=== PATIENT | female | born 1975 ===

== ENCOUNTER 2020-09-10 09:42 | Emergency (ER) | payer OTHER, SELFPAY ==
--- NOTE | ~2020-09-10 | XR_ITS ---
EXAMINATION: XR CHEST CLINICAL INFORMATION: SOB. COMPARISON: Chest x-ray 06/18/2015 TECHNIQUE: Frontal view of the chest was obtained. FINDINGS: No significant abnormality is noted involving the heart, lungs, mediastinum, bony thorax or soft tissues. XR/XR chest 1V IMPRESSION: Unremarkable chest examination.
[2020-09-10 09:47] VITALS: BP 147/94; PULSE 98; RESP 22; TEMP 36.8; O2SAT 97; BMI 54.8
--- NOTE | 2020-09-10 10:32 | ECG_ITS ---
Test Reason : SHORT OF BREATH Blood Pressure : / mmHG Vent. Rate : 094 BPM Atrial Rate : 094 BPM P-R Int : 174 ms QRS Dur : 098 ms QT Int : 382 ms P-R-T Axes : 056 049 047 degrees QTc Int : 477 ms Normal sinus rhythm Normal ECG No previous ECGs available Referred By: Zohreh Tatum Electronically Signed By:SONIDO SCHULTE MD
--- NOTE | 2020-09-10 10:54 | ED_ITS ---
HPI - SOB/Dyspnea General Chief Complaint: Dyspnea Stated Complaint: asthma Time Seen by Provider: 09/10/20 10:14 Source: patient Mode of arrival: ambulatory History of Present Illness HPI Narrative: 44-year-old female with a past medical history of asthma presenting to the ED complaining of SOB since last night. Also reports dry cough. Patient previously COVID-19 positive in March. Denies fever, chills, chest pain, recent travel, LE edema, COVID-19 exposure, abdominal pain, nausea/vomiting MD elicited complaint: shortness of breath, cough and asthma attack Related Data Allergies Allergy/AdvReac Type Severity Reaction Status Date / Time Penicillins [PENICILLINS] Allergy Unknown HIVES Unverified 01/12/20 16:10 Review of Systems Review of Systems: Constitutional: No Fever, No Chills Cardiovascular: No Chest Pain, + SOB, No Dyspnea on Exertion, No Edema, Respiratory: + Cough, No Sputum, No Wheezing Gastrointestinal: No Nausea, No Vomiting, No Diarrhea, No Constipation, No Abdominal pain Genitourinary: No Hematuria, No Flank Pain Musculoskeletal: No joint pain, No Myalgias, No Joint Swelling Skin: No Skin Lesions, No rash Neuro: No Weakness, No Numbness, No Headache Yes all other systems are reviewed and are negative FOR[facility]LY [facility] Past Medical History Attestation statement: The following information was validated with the patient. Medical History (Updated 09/10/20 @ 13:16 by RENETTA Heaton) Asthma Diabetic acidosis Social History Social History Advance Directives: No Advance Directives Information Provided: No Physical Exam Vital Signs: Vital Signs: Last Vital Signs Temp 98.2 F 09/10/20 09:47 Pulse 89 09/10/20 11:04 Resp 22 H 09/10/20 09:47 BP 147/94 H 09/10/20 09:47 Pulse Ox 97 09/10/20 09:47 Body Mass Index 54.8 Const: General: cooperative, healthy appearing, comfortable and no acute distress Orientation/consciousness: patient oriented x3 Limitations: no limitations HENMT: Head: Yes normal to inspection Ears: hearing grossly normal bilaterally General nose exam: Normal external nose present Face and sinus: Yes normal facial exam Eyes: General: appearance normal, both eyes and all related structures EOM: EOMs intact bilaterally Neck: Neck: Yes normal visual inspection Chest: Chest palpation & inspection: normal inspection of the chest Resp: Other: Upper airway wheezing Effort & Inspection: normal respiratory effort, able to speak in complete sentences and no stridor Auscultation: clear to auscultation bilaterally, no rales and no rhonchi Cardio: Rate: regular rate Heart sounds: S1 normal heart sound present and S2 normal heart sound present GI: Inspection: Yes normal to inspection Palpation (GI): Soft to palpation, nontender, no guarding and not rigid Skin: Rashes: no rashes Wounds: no wounds Neuro: General: patient oriented x3 Gait exam (Neuro): Normal gait present Extrem: General: Yes normal to inspection, Yes no pedal edema and Yes no calf tenderness Course Course Course Narrative: -1231--WBC count 11.6, magnesium low 1.4 > IV repletion ordered, troponin negative XR chest 1V IMPRESSION: Unremarkable chest examination. -1304--COVID-19/influenza/RSV negative -difficulty obtaining IV access on patient, IV Magnesium changed to p.o. -on re-evaluation patient reports symptomatic improvement/resolution. Lungs CTA. Worrisome signs and symptoms and strict return precautions discussed, she verbalized understanding and feel safe for discharge home MDM - SOB/Dyspnea MDM Narrative Medical decision making narrative: 44-year-old female with a past medical history of asthma presenting to the ED complaining of SOB since last night. Also reports dry cough. On exam mildly tachypneic, NAD, lungs CTA with forced upper airway sounds, no pedal edema/calf tenderness. Concern for possible asthma exacerbation vs viral syndrome vs anxiety. Unlikely pneumonia/PE/ACS Plan: EKG, labs, CXR, albuterol, reassess Medical Records Attestation: I reviewed the patient's medical records. Lab Data Attestation: I reviewed the patient's lab results. Result diagrams: 09/10/20 11:35 09/10/20 11:35 Labs: Lab Results 09/10/20 09/10/20 09/10/20 Range/Units 11:34 11:34 11:35 WBC 11.6 H (4.8-10.8) X10*3/uL RBC 4.23 (4.20-5.50) X10*6/uL Hgb 13.1 (12.0-16.0) g/dl Hct 37.7 (37-47) % MCV 89.1 (80-98) fL MCH 31.0 (27.0-33.0) pg MCHC 34.7 (31.0-35.0) g/dl RDW 12.3 (11.0-16.0) % Plt Count 263 (160-400) X10*3/uL MPV 9.1 L (9.4-12.3) fL Immature Gran % (Auto) 0.4 (0.0-0.4) % Neut % (Auto) 49.8 (45-73) % Lymph % (Auto) 42.6 H (20-40) % [place] % (Auto) 5.3 (2-11) % Eos % (Auto) 1.6 (0-4) % Baso % (Auto) 0.3 (0-2) % Lymph # (Auto) 5.0 H (1.2-4.9) X10*3/uL [place] # (Auto) 0.6 (0.1-1.2) X10*3/uL Eos # (Auto) 0.2 (0.0-0.4) X10*3/uL Baso # (Auto) 0.0 (0.0-0.2) X10*3/uL Abs Immat Gran (auto) 0.05 H (0.00-0.03) X10*3/uL Absolute Neuts (auto) 5.8 (2.0-8.3) X10*3/uL Absolute Nucleated RBC 0.000 (0.0-0.012) X10*3/uL Nucleated RBC % (auto) 0.0 (0.0-0.2) /100WBC PT (10.8-13.0) SEC INR (0.9-1.1) APTT (24.1-38.0) SEC Sodium (135-145) mmol/L Potassium (3.3-5.1) mmol/L Chloride (96-108) mmol/L Carbon Dioxide (22-29) mmol/L Anion Gap (12-20) BUN (9-16) mg/dL Creatinine (0.5-1.4) mg/dL Estim Creat Clear Calc Estimated GFR Random Glucose (60-115) mg/dL Calcium (8.4-10.2) mg/dL Magnesium (1.6-2.6) mg/dL Total Bilirubin (0.0-1.0) mg/dL Direct Bilirubin (0.0-0.5) mg/dL AST (5-31) U/L ALT (0-31) U/L Alkaline Phosphatase (39-117) U/L Troponin I High Sens < 3.5 (<3.5-17.0) ng/L B-Natriuretic Peptide < 10 (<100) pg/mL Total Protein (6.5-8.0) g/dL Albumin (3.5-5.0) g/dL Coronavirus (PCR) NEGATIVE (Negative) Influenza Type A (PCR) NEGATIVE (Negative) Influenza Type B (PCR) NEGATIVE (Negative) RSV RNA Qual (PCR) NEGATIVE (Negative) 09/10/20 09/10/20 09/10/20 Range/Units 11:35 11:35 11:35 WBC (4.8-10.8) X10*3/uL RBC (4.20-5.50) X10*6/uL Hgb (12.0-16.0) g/dl Hct (37-47) % MCV (80-98) fL MCH (27.0-33.0) pg MCHC (31.0-35.0) g/dl RDW (11.0-16.0) % Plt Count (160-400) X10*3/uL MPV (9.4-12.3) fL Immature Gran % (Auto) (0.0-0.4) % Neut % (Auto) (45-73) % Lymph % (Auto) (20-40) % [place] % (Auto) (2-11) % Eos % (Auto) (0-4) % Baso % (Auto) (0-2) % Lymph # (Auto) (1.2-4.9) X10*3/uL [place] # (Auto) (0.1-1.2) X10*3/uL Eos # (Auto) (0.0-0.4) X10*3/uL Baso # (Auto) (0.0-0.2) X10*3/uL Abs Immat Gran (auto) (0.00-0.03) X10*3/uL Absolute Neuts (auto) (2.0-8.3) X10*3/uL Absolute Nucleated RBC (0.0-0.012) X10*3/uL Nucleated RBC % (auto) (0.0-0.2) /100WBC PT 12.2 (10.8-13.0) SEC INR 1.0 (0.9-1.1) APTT 31.7 (24.1-38.0) SEC Sodium 138 (135-145) mmol/L Potassium 3.4 (3.3-5.1) mmol/L Chloride 97 (96-108) mmol/L Carbon Dioxide 29 (22-29) mmol/L Anion Gap 15 (12-20) BUN 16 (9-16) mg/dL Creatinine 0.77 (0.5-1.4) mg/dL Estim Creat Clear Calc 118.4 Estimated GFR > 60 Random Glucose 235 H (60-115) mg/dL Calcium 9.3 (8.4-10.2) mg/dL Magnesium 1.4 L* (1.6-2.6) mg/dL Total Bilirubin 0.3 (0.0-1.0) mg/dL Direct Bilirubin < 0.2 (0.0-0.5) mg/dL AST 15 (5-31) U/L ALT 30 (0-31) U/L Alkaline Phosphatase 65 (39-117) U/L Troponin I High Sens (<3.5-17.0) ng/L B-Natriuretic Peptide (<100) pg/mL Total Protein 6.7 (6.5-8.0) g/dL Albumin 4.1 (3.5-5.0) g/dL Coronavirus (PCR) (Negative) Influenza Type A (PCR) (Negative) Influenza Type B (PCR) (Negative) RSV RNA Qual (PCR) (Negative) Discharge Plan Discharge Clinical Impression: Hypomagnesemia Asthma with exacerbation Qualifiers: Asthma severity: unspecified severity Asthma persistence: unspecified Qualified Code(s): J45.901 - Unspecified asthma with (acute) exacerbation Patient Disposition: Home, Self-Care Instructions: Hypomagnesemia (ED), Asthma (ED) Additional Instructions: Continue to use your inhalers and prescribed home medications Your x-ray was unremarkable Your blood work showed slight low levels of magnesium in your blood, make sure you are eating magnesium rich foods, consider taking magnesium oxide supplements [id number] Follow-up with her doctor If her symptoms persist or worsen, have chest pain, fever, or constant worsening shortness of breath please return to the ED Referrals: Palak Ray NP [Primary Care Provider] - 2 days
[2020-09-10] MEDS: Albuterol/Iprat 2.5/0.5MG 3 ML AMPUL.NEB INHALE (11:00)
[2020-09-10 11:04] VITALS: PULSE 89; O2SAT 95
[2020-09-10 11:45] LABS: MANUAL DIFF FLAG NO
[2020-09-10 11:47] LABS: Basophils Percent Auto 0.3 % (0-2); Eosinophils Absolute Auto 0.2 X10*3/uL (0.0-0.4); Eosinophils Percent Auto 1.6 % (0-4); Hematocrit 37.7 % (37-47); Hemoglobin 13.1 g/dl (12.0-16.0); Imm Gran Abs Auto 0.05 X10*3/uL (0.00-0.03); Imm Gran Pct Auto 0.4 % (0.0-0.4); Lymphocytes Percent Auto 42.6 % (20-40); Mean Corpuscular HGB Conc 34.7 g/dl (31.0-35.0); Mean Corpuscular Volume 89.1 fL (80-98); Mean Platelet Volume 9.1 fL (9.4-12.3); Monocytes Absolute Auto 0.6 X10*3/uL (0.1-1.2); Monocytes Percent Auto 5.3 % (2-11); Neutrophils Absolute Auto 5.8 X10*3/uL (2.0-8.3); Neutrophils Percent Auto 49.8 % (45-73); Platelet Count 263 X10*3/uL (160-400); Red Blood Count 4.23 X10*6/uL (4.20-5.50); Red Cell Distribution Width 12.3 % (11.0-16.0); White Blood Count 11.6 X10*3/uL (4.8-10.8)
[2020-09-10 11:52] LABS: Prothrombin Time 12.2 SEC (10.8-13.0)
[2020-09-10 11:55] LABS: Partial Thromboplastin Time 31.7 SEC (24.1-38.0)
[2020-09-10 12:24] LABS: Alanine Aminotransferase 30 U/L (0-31); Albumin Level 4.1 g/dL (3.5-5.0); Alkaline Phosphatase 65 U/L (39-117); Aspartate Amino Transferase 15 U/L (5-31); Bilirubin Direct < 0.2 mg/dL (0.0-0.5); Bilirubin Total 0.3 mg/dL (0.0-1.0); Total Protein 6.7 g/dL (6.5-8.0)
[2020-09-10 12:27] LABS: Anion Gap 15 (12-20); Blood Urea Nitrogen 16 mg/dL (9-16); Calcium 9.3 mg/dL (8.4-10.2); Carbon Dioxide 29 mmol/L (22-29); Chloride 97 mmol/L (96-108); Creatinine Clr Calc Pharmacy 118.4; Estimated Glomerular Filt Rate > 60; Glucose Random 235 mg/dL (60-115); Magnesium 1.4 mg/dL (1.6-2.6); Potassium 3.4 mmol/L (3.3-5.1); Sodium 138 mmol/L (135-145)
[2020-09-10 12:28] LABS: B Type Natriuretic Peptide < 10 pg/mL (<100); Troponin-I High Sensitivity < 3.5 ng/L (<3.5-17.0)
[2020-09-10 12:36] LABS: Influenza A PCR NEGATIVE (Negative); Influenza B PCR NEGATIVE (Negative); Resp Syncy Virus RNA Qual PCR NEGATIVE (Negative); SARS COV2 PCR INHOUSE NEGATIVE (Negative)
[2020-09-10] MEDS: Magnesium Oxide 400 MG TABLET 800 MG PO (13:23)
[2020-09-10 13:25] VITALS: BP 121/56; PULSE 97; RESP 18; O2SAT 96
--- NOTE | 2020-09-10 13:27 | PC.NURSE ---
Pt now appearing calm and no longer is wheezing. Plan for DC home
== END 2020-09-10 13:36 | disposition home or self-care (01) ==
PROVIDERS: Physician Assistant; Emergency Provider Emergency Medicine; PCP Nurse Practitioner Family
DX: J45.901 Unspecified asthma with (acute) exacerbation (principal); E83.42 Hypomagnesemia; Z20.822 Contact with and (suspected) exposure to COVID-19; Z79.899 Other long term (current) drug therapy
CPT/HCPCS: 0241U; 36415; 71045; 80048; 80076; 83735; 83880; 84484; 85025; 85610; 85730; 93005; 94640; 96365; 99283; 99284

== ENCOUNTER 2023-10-15 13:57 | Emergency (ER) | payer OTHER, SELFPAY ==
--- NOTE | ~2023-10-15 | CT_ITS ---
EXAMINATION: CT ABDOMEN AND PELVIS WITH CONTRAST CLINICAL INFORMATION: Lower abdominal pain. COMPARISON: Unable to retrieve comparison images from 11/18/2015. However, the report of prior imaging findings is reviewed. TECHNIQUE: Multidetector volumetric images were obtained from the superior aspect of the liver through the pubic symphysis following administration 85 mL of Omnipaque 350 intravenous contrast. Sagittal and coronal reformatted images were obtained on the technologist's workstation. Oral contrast: No This CT examination was performed using dose optimization techniques as appropriate, variously including the following: *Automated exposure control *Adjustment of mA and/or kV according to patient size (this includes techniques or standardized protocols for targeted exams where dose is matched to indication/reason for exam; i.e. extremities or head) *Use of iterative reconstruction technique DLP: 960 mGy-cm FINDINGS: LOCALIZER IMAGES: Obese body habitus. Normal bowel gas pattern. LUNG BASES: No pulmonary consolidation or pleural effusion. HEPATOBILIARY: There is hepatomegaly with the right hepatic lobe measuring approximately 22.5 cm in length. Gallbladder has a normal appearance. No dilated bile ducts. PANCREAS: No edema, pancreatic ductal dilatation or mass. SPLEEN: Mild splenomegaly. Spleen is 13.7 cm in maximum dimension. ADRENAL GLANDS: Normal. KIDNEYS AND URETERS: Kidneys have normal size and cortical thickness. No perinephric fluid collection, urolithiasis or hydroureteronephrosis. BLADDER: Underdistended and otherwise grossly unremarkable. BOWEL AND PERITONEUM: Stomach and small bowel are unremarkable. No dilated loops. The appendix is normal. No overt colonic wall thickening or mesenteric fat stranding. No free fluid or pneumoperitoneum. ABDOMINAL WALL: No significant findings. VASCULATURE: Abdominal aorta is normal in caliber and its branches are widely patent. LYMPH NODES: No pathologic sized lymph nodes in the abdomen or pelvis. No inguinal lymphadenopathy. PELVIC VISCERA: Status post hysterectomy. A cyst of the left adnexa measures approximately 8.5 x 5.2 x 7.5 cm and contains a central septation. On the axial images, the septation appears to have a thickness in the range of 0.2 to 0.5 cm. There are no papillary projections or mural nodules along the cyst wall. No pelvic free fluid. MUSCULOSKELETAL: Unremarkable. CT/CT abdomen pelvis w IV con IMPRESSION: * There is obesity and hepatosplenomegaly. * 8.5 x 5.2 x 7.5 cm septated cystic lesion is present in the left adnexa. In a patient with symptoms, pelvic ultrasound could be performed promptly for further evaluation and then depending on ultrasound results, determine whether MR imaging of the pelvis would need to be performed. There is no pelvic free fluid.
--- NOTE | ~2023-10-15 | US_ITS ---
EXAMINATION: US PELVIS CLINICAL INFORMATION: Pain. Septated cystic lesion in the left adnexa on recent CT. COMPARISON: CT abdomen/pelvis 10/15/2023. TECHNIQUE: Ultrasound of the pelvis is performed using both transabdominal and transvaginal transducers along with Doppler. Transvaginal imaging is performed due to inadequate visualization transabdominally. FINDINGS: Hysterectomy. The right ovary is not well seen. Redemonstration of a complex multiseptated cystic mass in the left ovary measuring approximately up to 7.6 cm with some equivocal nodular like thickening along the anterior margins of the lesion. The rim of surrounding ovarian stroma does not appear to be significantly thickened, and there is preserved flow on color and spectral Doppler at the moment of this examination. No evidence of free fluid. US/US pelvic ovarian doppler IMPRESSION: Complex multiseptated cystic mass in the left ovary, for which further evaluation with a pelvic MRI with and without IV contrast is recommended. Ovarian neoplasm is not excluded. The ovarian stroma itself do not appear to be significantly thickened and there is preserved flow which argues again ovarian torsion. However, clinical correlation is needed as torsion/detorsion and early partial torsion cannot be entirely excluded.
--- NOTE | ~2023-10-15 | US_ITS ---
EXAMINATION: US PELVIS CLINICAL INFORMATION: Pain. Septated cystic lesion in the left adnexa on recent CT. COMPARISON: CT abdomen/pelvis 10/15/2023. TECHNIQUE: Ultrasound of the pelvis is performed using both transabdominal and transvaginal transducers along with Doppler. Transvaginal imaging is performed due to inadequate visualization transabdominally. FINDINGS: Hysterectomy. The right ovary is not well seen. Redemonstration of a complex multiseptated cystic mass in the left ovary measuring approximately up to 7.6 cm with some equivocal nodular like thickening along the anterior margins of the lesion. The rim of surrounding ovarian stroma does not appear to be significantly thickened, and there is preserved flow on color and spectral Doppler at the moment of this examination. No evidence of free fluid. US/US pelvic and transvaginal IMPRESSION: Complex multiseptated cystic mass in the left ovary, for which further evaluation with a pelvic MRI with and without IV contrast is recommended. Ovarian neoplasm is not excluded. The ovarian stroma itself do not appear to be significantly thickened and there is preserved flow which argues again ovarian torsion. However, clinical correlation is needed as torsion/detorsion and early partial torsion cannot be entirely excluded.
--- NOTE | 2023-10-15 14:19 | ED.ABDPAIN ---
HPI - Abdominal Pain General Chief Complaint: Abdominal Pain Stated Complaint: Lower abd pain Time Seen by Provider: 10/15/23 15:49 Source: patient Mode of arrival: ambulatory Limitations: no limitations History of Present Illness ED Provider: Pari Patel NP HPI narrative: Patient is a 47-year-old female who presents to the emergency department for evaluation of mid lower abdominal pain/suprapubic pain. Reports symptom onset 5 weeks ago has been constant in nature. Over the past few days pain has become worsened she feels it radiating into her lower back. She denies associated fevers, chills, nausea, vomiting, constipation, abnormal vaginal discharge, vaginal bleeding, dysuria, urinary frequency/urgency/hesitancy. She admits to a history of partial hysterectomy with removal of the uterus in approximately 2011 as they ?thought I had endometriosis?. She admits to a history of irregular Pap smears in the past, requiring biopsy but denies any known concerning results, and she has not had 1 in many years, does not recall the date of her last Pap smear. When asked, she does admit to having frequent episodes of diarrhea, at least 4 times weekly and she may experience a single episode of watery diarrhea or many episodes throughout the day. She denies hematochezia or melena. She has tried Tylenol and ibuprofen without improvement in her pain, she takes gabapentin for pain otherwise but states that this does not change her abdominal pain. Denies any history of similar pain in the past. Related Data Allergies Allergy/AdvReac Type Severity Reaction Status Date / Time Penicillins [PENICILLINS] Allergy Unknown HIVES Verified 10/15/23 14:25 bupropion [From Wellbutrin] Allergy Hives Verified 10/15/23 14:25 metformin Allergy Gastrointestinal Verified 10/15/23 14:25 Upset Review of Systems Review of Systems Yes all other systems are reviewed and are negative PMFSH Past Medical History Attestation statement: The following information was validated with the patient. Source: old records reviewed Medical History Diabetic acidosis Asthma Social History Social History Alcohol intake: current Smoked in Last 30 Days: Yes Use of substances other than those prescribed or required for medical reasons: Yes Substance Use Type: Marijuana Substance Use Frequency: Daily Advance Directives: No Advance Directives Information Provided: No Physical Exam ED Vital Signs: Vital Signs - 24 hr 10/15/23 14:20 10/15/23 15:36 10/15/23 19:40 Temperature 98.7 F 97.6 F 98.2 F Pulse Rate 78 72 64 Respiratory Rate 16 19 16 Blood Pressure 127/74 127/72 112/60 Pulse Oximetry 98 96 97 Oxygen Delivery Method Room Air Room Air Room Air BMI result Body Mass Index 47.2 Appearance: Alert.?Oriented to person, place and time. No acute distress.?Normal affect. Eyes: Pupils equal, round and reactive to light.? ENT: Pharynx normal.?? Neck: Normal inspection.? Neck supple.?? CVS: Heart sounds normal. Normal heart rate and rhythm.? Pulses normal.?? Respiratory: No respiratory distress.? Lung sounds clear to auscultation bilaterally?? Abdomen: Soft with mid lower abdominal/suprapubic tenderness upon palpation. No CVA tenderness. Normoactive bowel sounds. ? Skin: Skin warm and dry.? Normal skin color.? ? Extremities: No lower extremity edema.? Neuro: Moves all extremities spontaneously. Sensation intact bilaterally. Ambulates with normal steady gait. Course Course Course Narrative: This is a Rapid Medical Exam performed in triage by Zohreh Trimble PA-C. Full HPI, ROS and PE to be performed by primary ED provider. 47 year-old F w/ PMHx diabetes, asthma presenting to the ED c/o lower pelvic pain x1 mos, constant, worsening. Also reports some back pain. denies rash, dysuria, hematuria, N/V, vaginal bleeding/discharge PE: abdomen soft w/lower ttp, no guarding. nontoxic appearing. talking in complete sentences Plan: Labs, UA Reevaluation(s) Reevaluation #1: CT AP revealing large septated cystic lesion of the left adnexa, plan to obtain further evaluation with pelvic ultrasound with Doppler to evaluate further for possible torsion +/- MRI imaging. No free fluid present. Patient reports pain has been consistent 11/03, amenable to receiving ketorolac at this time. Time: 18:34 Reevaluation #2: Ultrasound with Doppler reveals persistent complex multi septated cystic mass of the left ovary, can not exclude neoplasm, ovarian stroma not significantly thickened and preserved flow which argues against ovarian torsion however recommend clinical correlation for possible torsion/detorsion and early partial torsion. I Consulted with Gynecology on-call; Dr. Waite, he advises that this is to be considered malignant until proven otherwise based on its appearance, in addition, given the size of the mass coupled with her pain which she now reports his progressively worsening, currently 01/04, she should be transferred to a tertiary care center where they have appropriate batch freezer oncology services, and further evaluation for possible torsion. Patient is amenable to receiving morphine 4mg IV at this time, will also medicate with ondansetron. Will attempt transfer to [facility] Time: 20:30 Reevaluation #3: Patient accepted for transfer to [facility], accepting [facility]. Patient updated on plan of care Time: 21:32 Medical Decision Making Medical Decision Making [facility] Narrative: Patient is a 47-year-old female who presents emergency department for evaluation of abdominal pain and diarrhea as per HPI. Overall she appears well, nontoxic, afebrile. She is without tachycardia tachypnea or hypoxia. She is speaking clear full sentences. She has mild tenderness upon palpation over the mid lower abdomen/suprapubic region, no rebound tenderness at McBurney's point, no rigidity or guarding. No CVA tenderness associated with this. Reviewed labs; CBC is without leukocytosis anemia or thrombocytopenia. No electrolyte derangement. No RUSSELL. Mild hyperglycemia random glucose of 182 without anion gap. LFTs and lipase within normal range. Urinalysis with trace leukocyte esterase 1+ urine bacteria and squamous epithelial cells present, concerning for potential urogenital contamination versus true urinary tract infection, she does not have urinary symptoms side from the suprapubic pain. She declines interest in pain medication at this time. CT of the abdomen and pelvis to be obtained Differential Diagnosis Differential Diagnoses: The differential diagnosis associated with the presentation includes (Colitis, diverticulitis, unlikely obstruction, urinary tract infection, pyelonephritis, unlikely dissection, muscular pain) Admission/Observation Consideration of admission/observation: Escalation of care including admission/observation considered Lab Data [facility] Lab Attestation statement: I reviewed the patient's lab results. (See narrative above) 10/15/23 15:02 10/15/23 15:02 Labs: Lab Results 10/15/23 10/15/23 Range/Units 15:00 15:02 WBC 9.7 (4.8-10.8) X10*3/uL RBC 5.31 (4.20-5.50) X10*6/uL Hgb 16.3 H (12.0-16.0) g/dl Hct 46.8 (37.0-47.0) % MCV 88.1 (80.0-98.0) fL MCH 30.7 (27.0-33.0) pg MCHC 34.8 (31.0-35.0) g/dl RDW 12.3 (11.0-16.0) % Plt Count 301 (160-400) X10*3/uL MPV 9.0 L (9.4-12.3) fL Immature Gran % (Auto) 0.3 (0.0-0.4) % Neut % (Auto) 53.6 (45-73) % Lymph % (Auto) 32.3 (20-40) % [place] % (Auto) 9.1 (2-11) % Eos % (Auto) 4.0 (0-4) % Baso % (Auto) 0.7 (0-2) % Lymph # (Auto) 3.1 (1.2-4.9) X10*3/uL [place] # (Auto) 0.9 (0.1-1.2) X10*3/uL Eos # (Auto) 0.4 (0.0-0.4) X10*3/uL Baso # (Auto) 0.1 (0.0-0.2) X10*3/uL Abs Immat Gran (auto) 0.03 (0.00-0.03) X10*3/uL Absolute Neuts (auto) 5.2 (2.0-8.3) x10*3/uL Absolute Nucleated RBC 0.000 (0.0-0.012) X10*3/uL Nucleated RBC % (auto) 0.0 (0.0-0.2) /100WBC Sodium 138 (135-145) mmol/L Potassium 4.0 (3.3-5.1) mmol/L Chloride 97 (96-108) mmol/L Carbon Dioxide 31 H (22-29) mmol/L Anion Gap 14 (12-20) BUN 8 L (9-16) mg/dL Creatinine 0.74 (0.5-1.4) mg/dL Estim Creat Clear Calc 108.6 Estimated GFR > 60 Random Glucose 182 H (60-115) mg/dL Calcium 9.9 D (8.4-10.2) mg/dL Magnesium 1.7 (1.6-2.6) mg/dL Total Bilirubin 0.6 (0.0-1.0) mg/dL Direct Bilirubin 0.2 (0.0-0.5) mg/dL AST 12 (5-31) U/L ALT 11 (0-31) U/L Alkaline Phosphatase 76 (39-117) U/L Total Protein 7.8 (6.5-8.0) g/dL Albumin 4.3 (3.5-5.0) g/dL Lipase 18 (8-78) U/L Urine Color Yellow Urine Appearance Cloudy Urine pH 6.5 (5.0-9.0) Ur Specific [place] 1.015 (1.005-1.025) Urine Protein Negative (Neg-Trace) mg/dL Urine Glucose (UA) Negative (Negative) mg/dL Urine Ketones Trace (Negative) mg/dL Urine Blood Negative (Negative) Urine Nitrite Negative (Negative) Ur Leukocyte Esterase Trace H (Negative) Urine RBC 0-2 (0-2) /HPF Urine WBC 0-5 (0-5) /HPF Ur Squamous Epith Cells 11-20 (0-2) /HPF Urine Bacteria 1+ (None Seen) Hyaline Casts 0-2 (0-2) /LPF Urine Test NEGATIVE (NEGATIVE) Radiology Impression Discussion of test interpretation with radiology: I have reviewed the radiologist's reading. Radiologist Impression: CT/CT abdomen pelvis w IV con IMPRESSION: * There is obesity and hepatosplenomegaly. * 8.5 x 5.2 x 7.5 cm septated cystic lesion is present in the left adnexa. In a patient with symptoms, pelvic ultrasound could be performed promptly for further evaluation and then depending on ultrasound results, determine whether MR imaging of the pelvis would need to be performed. There is no pelvic free fluid. US/US pelvic and transvaginal IMPRESSION: Complex multiseptated cystic mass in the left ovary, for which further evaluation with a pelvic MRI with and without IV contrast is recommended. Ovarian neoplasm is not excluded. The ovarian stroma itself do not appear to be significantly thickened and there is preserved flow which argues again ovarian torsion. However, clinical correlation is needed as torsion/detorsion and early partial torsion cannot be entirely excluded. Independent Historian Clinical information obtained from an independent historian. History obtained from or confirmed by: Spouse (Present who confirms history) Prescription Management I considered prescription management with: Pain Medication Medications Administered Discontinued Medications Generic Name Dose Route Start Last Admin Trade Name Freq PRN Reason Stop Dose Admin Sodium Chloride 1,000 mls @ 999 mls/hr 10/15/23 16:00 10/15/23 18:06 Ns IV 10/15/23 17:00 Infused .Q1H1M DEBORA Infusion Iohexol 100 ml 10/15/23 16:02 10/15/23 16:03 Iohexol 350 Mg/Ml 100 Ml Infus..Btl IV 10/15/23 16:03 85 ml ONCE ONE Administration Ketorolac Tromethamine 30 mg 10/15/23 18:34 10/15/23 18:47 Ketorolac Tromethamine 30 Mg/Ml Vial IVPUSH 10/15/23 18:35 30 mg ONCE ONE Administration Critical Care Time Critical Care Time Critical Care Time: Yes Total Critical Care Time: 35 Attestation: I personally attest to this critical care time spent taking care of the patient exclusive of all other billable procedures was approximately 35 minutes including initial evaluation of patient, ordering tests, morphine IV and re assessment, medical consultation, documentation, re-evaluation. Discharge Plan Discharge Clinical Impression: Adnexal mass Patient Disposition: [facility] Transfer Details: [facility] Print Language: Barb[place]
[2023-10-15 14:20] VITALS: BP 127/74; PULSE 78; RESP 16; TEMP 37.1; O2SAT 98; BMI 47.2
[2023-10-15 15:09] LABS: MANUAL DIFF FLAG NO
[2023-10-15 15:11] LABS: Basophils Absolute Auto 0.1 X10*3/uL (0.0-0.2); Basophils Percent Auto 0.7 % (0-2); Eosinophils Absolute Auto 0.4 X10*3/uL (0.0-0.4); Hematocrit 46.8 % (37.0-47.0); Hemoglobin 16.3 g/dl (12.0-16.0); Imm Gran Abs Auto 0.03 X10*3/uL (0.00-0.03); Imm Gran Pct Auto 0.3 % (0.0-0.4); Lymphocytes Absolute Auto 3.1 X10*3/uL (1.2-4.9); Lymphocytes Percent Auto 32.3 % (20-40); Mean Corpuscular HGB Conc 34.8 g/dl (31.0-35.0); Mean Corpuscular Hemoglobin 30.7 pg (27.0-33.0); Mean Corpuscular Volume 88.1 fL (80.0-98.0); Monocytes Absolute Auto 0.9 X10*3/uL (0.1-1.2); Monocytes Percent Auto 9.1 % (2-11); Neutrophils Absolute Auto 5.2 x10*3/uL (2.0-8.3); Neutrophils Percent Auto 53.6 % (45-73); Platelet Count 301 X10*3/uL (160-400); Red Blood Count 5.31 X10*6/uL (4.20-5.50); Red Cell Distribution Width 12.3 % (11.0-16.0); White Blood Count 9.7 X10*3/uL (4.8-10.8)
[2023-10-15 15:13] LABS: Appearance Urine Cloudy; Color Urine Yellow; Glucose Urine UA Negative (Negative); Leukocyte Esterase Urine Trace (Negative); Nitrite Urine Negative (Negative); PH 6.5 (5.0-9.0); Specific Gravity - Urine 1.015 (1.005-1.025); UMIC TRIGGER UACC YES; Urine Blood Negative (Negative); Urine Ketones Trace mg/dL (Negative); Urine Protein Negative (Neg-Trace)
[2023-10-15 15:15] LABS: Bacteria Urine 1+ (None Seen); Hyaline Casts Urine 0-2 /LPF (0-2); RBC Urine 0-2 /HPF (0-2); UPreg QC Valid YES; Urine Pregnancy NEGATIVE (NEGATIVE); WBC Urine 0-5 /HPF (0-5)
[2023-10-15 15:25] LABS: Alanine Aminotransferase 11 U/L (0-31); Albumin Level 4.3 g/dL (3.5-5.0); Alkaline Phosphatase 76 U/L (39-117); Anion Gap 14 (12-20); Aspartate Amino Transferase 12 U/L (5-31); Bilirubin Direct 0.2 mg/dL (0.0-0.5); Bilirubin Total 0.6 mg/dL (0.0-1.0); Blood Urea Nitrogen 8 mg/dL (9-16); Calcium 9.9 mg/dL (8.4-10.2); Carbon Dioxide 31 mmol/L (22-29); Chloride 97 mmol/L (96-108); Creatinine Clr Calc Pharmacy 108.6; Estimated Glomerular Filt Rate > 60; Glucose Random 182 mg/dL (60-115); Lipase 18 U/L (8-78); Magnesium 1.7 mg/dL (1.6-2.6); Sodium 138 mmol/L (135-145); Total Protein 7.8 g/dL (6.5-8.0)
[2023-10-15 15:36] VITALS: BP 127/72; PULSE 72; RESP 19; TEMP 36.4; O2SAT 96
[2023-10-15] MEDS: iohexoL 350 MG/ML 100 ML INFUS..BTL IV (16:03)
[2023-10-15] MEDS: 0.9 % Sodium Chloride 1,000 ML 999 ML IV (16:15)
--- NOTE | 2023-10-15 16:22 | PC.NURSE ---
pt medicated per JUN- pt had CT abdomen pelvis with IV con. pt sts for the last 6 weeks she has had worsening lower abdominal pain. sts that she had one episode of diarrhea and vomiting a few weeks ago, but no blood was seen. denies fevers, no hx of any GI issues that pt is aware of.
[2023-10-15] MEDS: Ketorolac Tromethamine 30 MG/ML VIAL IVPUSH (18:47)
[2023-10-15 19:40] VITALS: BP 112/60; PULSE 64; RESP 16; TEMP 36.8; O2SAT 97
--- NOTE | 2023-10-15 20:51 | P.CONOB_ITS ---
[employer] - CN: HPI Data of Consult Consult date: 10/15/23 Primary Care Provider: Laila Mosley, CLAUDIA Consult Narrative Narrative: I was consulted on Anisha Atkins who is a 47 year old presenting to the emergency room complaining of lower abdominal pain/suprapubic pain. The patient started having her symptoms started around 5 weeks ago . Over the past few days her pain has become worsened she feels it radiating into her lower back no associated fevers, chills, nausea, vomiting, constipation, abnormal vaginal discharge, vaginal bleeding, or any other GI or symptoms. cc:: CC: [facility] Past Medical History Medical History Diabetic acidosis Asthma Social History Social History Alcohol intake: current Smoked in Last 30 Days: Yes Use of substances other than those prescribed or required for medical reasons: Yes Substance Use Type: Marijuana Substance Use Frequency: Daily Advance Directives: No Advance Directives Information Provided: No Meds Allergies Allergy/AdvReac Type Severity Reaction Status Date / Time Penicillins [PENICILLINS] Allergy Unknown HIVES Verified 10/15/23 14:25 bupropion [From Wellbutrin] Allergy Hives Verified 10/15/23 14:25 metformin Allergy Gastrointestinal Verified 10/15/23 14:25 Upset [employer] Physical Exam Vitals Vital signs: Temp Pulse Resp BP Pulse Ox O2 Del Method 98.2 F 64 16 112/60 97 Room Air 10/15/23 19:40 10/15/23 19:40 10/15/23 19:40 10/15/23 19:40 10/15/23 19:40 10/15/23 19:40 BMI result Body Mass Index 47.2 Additional Comments: Reported by RENETTA Rush in the emergency as the following: Soft with mid lower abdominal/suprapubic tenderness upon palpation. No CVA tenderness. Normoactive bowel sounds. [employer] - Results Labs 10/15/23 15:02 10/15/23 15:02 Labs: Short CBC 10/15/23 Range/Units 15:02 WBC 9.7 (4.8-10.8) X10*3/uL Hgb 16.3 H (12.0-16.0) g/dl Hct 46.8 (37.0-47.0) % Plt Count 301 (160-400) X10*3/uL BMP 10/15/23 15:02 Sodium 138 Potassium 4.0 Chloride 97 Carbon Dioxide 31 H BUN 8 L Creatinine 0.74 Calcium 9.9 D Liver Function 10/15/23 Range/Units 15:02 Total Bilirubin 0.6 (0.0-1.0) mg/dL Direct Bilirubin 0.2 (0.0-0.5) mg/dL AST 12 (5-31) U/L ALT 11 (0-31) U/L Alkaline Phosphatase 76 (39-117) U/L Albumin 4.3 (3.5-5.0) g/dL Urine 10/15/23 Range/Units 15:00 Urine Color Yellow Urine Appearance Cloudy Urine pH 6.5 (5.0-9.0) Ur Specific [place] 1.015 (1.005-1.025) Urine Protein Negative (Neg-Trace) mg/dL Urine Glucose (UA) Negative (Negative) mg/dL Urine Test NEGATIVE (NEGATIVE) Imaging CT scan - pelvis: Radiologist's impression: ITS Impressions Abdomen/Pelvis CT 10/15/23 16:01 IMPRESSION: * There is obesity and hepatosplenomegaly. * 8.5 x 5.2 x 7.5 cm septated cystic lesion is present in the left adnexa. In a patient with symptoms, pelvic ultrasound could be performed promptly for further evaluation and then depending on ultrasound results, determine whether MR imaging of the pelvis would need to be performed. There is no pelvic free fluid. Doppler Study Ultrasound 10/15/23 19:04 IMPRESSION: Complex multiseptated cystic mass in the left ovary, for which further evaluation with a pelvic MRI with and without IV contrast is recommended. Ovarian neoplasm is not excluded. The ovarian stroma itself do not appear to be significantly thickened and there is preserved flow which argues again ovarian torsion. However, clinical correlation is needed as torsion/detorsion and early partial torsion cannot be entirely excluded. Pelvic/Transvag US 10/15/23 19:04 IMPRESSION: Complex multiseptated cystic mass in the left ovary, for which further evaluation with a pelvic MRI with and without IV contrast is recommended. Ovarian neoplasm is not excluded. The ovarian stroma itself do not appear to be significantly thickened and there is preserved flow which argues again ovarian torsion. However, clinical correlation is needed as torsion/detorsion and early partial torsion cannot be entirely excluded. Assessment and Plan (1) Adnexal mass: Status: Acute CT scan and ultrasound shows left 8.5 cm complex adnexal mass with features of potential malignancy or pre malignancy, ovarian neoplasm cannot be excluded, and early torsion cannot be ruled out by Doppler studies, therefore urgent surgical management is recommended. But since there is no Communications Programmer oncologist available on staff at [facility] for potential intraoperative surgical consultation/backup, I would recommend transfer the patient to a tertiary care center with Communications Programmer Oncology service is available on staff. I spent a total of 20 minutes reviewing the chart, communicating in the emergency room provider and documenting the medical record.
[2023-10-15] MEDS: ondansetron HCL 4 MG/2 ML VIAL IVPUSH (21:24)
[2023-10-15] MEDS: Morphine Sulfate 4 MG/ML CARTRIDGE IVPUSH (21:24)
--- NOTE | 2023-10-15 21:56 | PC.NURSE ---
report given to KARTHIK Damon at [facility]. pt awaiting transport
--- NOTE | 2023-10-15 23:03 | PC.NURSE ---
Mckayla COOKS assumed care of pt- pt to go to [facility]
== END 2023-10-15 23:05 | disposition short-term general hospital (02) ==
PROVIDERS: Physician Assistant; Emergency Provider Internal Medicine; PCP Nurse Practitioner Family
DX: R19.09 Other intra-abdominal and pelvic swelling, mass and lump (principal); N94.89 Other specified conditions associated with female genital organs and menstrual cycle; R00.0 Tachycardia, unspecified; J45.909 Unspecified asthma, uncomplicated; E11.65 Type 2 diabetes mellitus with hyperglycemia; R10.30 Lower abdominal pain, unspecified
CPT/HCPCS: 36415; 74177; 76830; 76856; 80048; 80076; 81001; 81025; 83690; 83735; 85025; 93975; 96361; 96374; 96375; 99284; 99285; J1885; J2270; J2405; Q9967

== ENCOUNTER → 2023-10-15 15:30 | Outpatient (BNV) | payer OTHER, SELFPAY | PROVIDERS: Emergency Provider Internal Medicine; PCP Nurse Practitioner Family; Visit Provider Obstetrics & Gynecology | DX: N94.89 Other specified conditions associated with female genital organs and menstrual cycle (principal) | CPT/HCPCS: 99283 ==

== ENCOUNTER 2023-12-15 09:36 | Emergency (ER) | payer OTHER, SELFPAY ==
[2023-12-15 09:49] VITALS: BP 148/84; PULSE 78; RESP 16; TEMP 36.4; O2SAT 95; BMI 45.6
--- NOTE | 2023-12-15 10:16 | ED_ITS ---
HPI - Skin/Abscess/Foreign Bdy General Chief complaint: Skin/Abscess/Foreign Body Stated complaint: Boil? Time Seen by Provider: 12/15/23 10:01 Source: patient, RN notes reviewed and old records reviewed Mode of arrival: ambulatory Limitations: no limitations History of Present Illness ED Provider: ASHLEY HILL PA-C HPI narrative: 48 year old female with pmhx significant for asthma and T2DM presents to the ED today for evaluation of abscess to right thigh x6 days. Admits to small amount of drainage from the area. Cannot recall the color of the discharge. Denies self-lancing the area at home. Trialled hot compresses at home without relief. Reports hx of T2DM however sugars are not well controlled. Reports associated subjective fever, chills, and fatigue (due to not getting much sleep last night). No known sick contacts. No OTC meds at home. Related Data Previous Rx's ?Medication ?Instructions ?Recorded cephalexin 500 mg capsule 500 mg PO QID 7 days #28 caps 12/15/23 doxycycline hyclate 100 mg tablet 100 mg PO BID 7 days #14 tabs 12/15/23 Allergies Allergy/AdvReac Type Severity Reaction Status Date / Time Penicillins [PENICILLINS] Allergy Unknown HIVES Verified 12/15/23 09:50 bupropion [From Wellbutrin] Allergy Hives Verified 12/15/23 09:50 metformin Allergy Gastrointestinal Verified 12/15/23 09:50 Upset Review of Systems 2 Review of Systems: Constitutional: No fever, chills, fatigue, night sweats, weight changes ENT/Mouth: No ear pain, hearing loss, nasal congestion, sinus pain, rhinorrhea, sore throat Eyes: No eye pain, swelling, redness, vision changes, discharge Cardio: No chest pain, palpitations, [place], orthopnea, peripheral edema Pulm: No SOB, cough, sputum, wheezing, dyspnea, hemoptysis GI: No nausea, vomiting, hematemesis, abdominal pain, diarrhea, constipation, hematochezia, melena : No irregular bleeding, dysuria, frequency, urgency, hesitancy, hematuria, flank pain, urinary flow changes, urinary incontinence or retention MSK: No back pain, neck pain, joint pain, myalgias Skin: No lesions, rashes, +abscess to right thigh Neuro: No weakness, numbness, paresthesias, LOC, dizziness, headache Psych: No anxiety/panic, depression, SI/HI, AH/VH All other systems reviewed and are negative. [facility] Past Medical History Attestation statement: The following information was validated with the patient. Source: old records reviewed and nursing notes reviewed Medical History Diabetic acidosis Asthma Social History Social History Alcohol intake: current Substance Use Type: Marijuana Advance Directives: Yes Advance Directives Information Provided: Yes Advance Directives on File: No Physical Exam 2 Vital Signs: Vital Signs: Last Vital Signs Temp 97.1 F 12/15/23 12:20 Pulse 70 12/15/23 12:20 Resp 16 12/15/23 12:20 BP 141/91 H 12/15/23 12:20 Pulse Ox 97 12/15/23 12:20 O2 Del Method Room Air 12/15/23 12:20 BMI result Body Mass Index 45.6 Patient slightly hypertensive. Afebrile. Const: General: cooperative, comfortable and no acute distress O rientation/consciousness: patient oriented x3 Limitations: no limitations HEENT: Head: Yes normal to inspection Eyes: General: appearance normal, both eyes and all related structures P upils: Equal, round and reactive pupils present Neck: Neck: Yes normal visual inspection Resp: Effort & Inspection: normal respiratory effort and able to speak in complete sentences Auscultation: clear to auscultation bilaterally Cardio: Rate: regular rate Rhythm: regular rhythm GI: Other: Obese abdomen, soft, ND/NT, no rebound or guarding. Normoactive bs x4. : General: Yes no CVA tenderness Back/Spine/Pelvis: Back: no CVA tenderness Skin: Other: + see below Neuro: General: patient oriented x3 and gait normal Cranial nerves: Yes Equal, round and reactive pupils present Extrem: Other: + 5cm x3cm abscess noted to right medial thigh with central fluctuance/pointing and surrounding induration/ erythema. warm, ttp. no streaking. Course Course Course Narrative: 1200-- Slight leukocytosis to 13.9 without left shift. No anemia. H&H stable. Chemistry without acute electrolyte abnormality requiring intervention. Random glucose 244 which appears to be around patient's baseline. She has tested negative for COVID, flu, RSV. > I&D performed. Approximately 10 mL of purulent drainage mixed with blood expressed from the abscess. Loculations broken up. Abscess irrigated with saline and iodine. Packed with iodoform packing. Culture sent to lab. Will place patient on Keflex and doxy. Of note, she does have a penicillin allergy. She tells me that this was an allergy as a child and was told that the reaction to this is hives. I did give her a dose of Keflex in the ED today and observed her for approximately 30-40 minutes without reaction. I feel comfortable discharging patient home with Keflex. No concern for anaphylactic reaction. Patient has remained stable throughout ED visit today. Discussed worrisome signs and symptoms and when to return to the ED. All questions answered at this time. Patient is agreeable with disposition and stable for discharge. Medications Administered Discontinued Medications Generic Name Dose Route Start Last Admin Trade Name Freq PRN Reason Stop Dose Admin Cephalexin HCl 500 mg 12/15/23 11:33 12/15/23 11:52 Cephalexin 500 Mg Capsule PO 12/15/23 11:34 500 mg ONCE ONE Administration Doxycycline Monohydrate 100 mg 12/15/23 11:33 12/15/23 11:52 Doxycycline Monohydrate 100 Mg Capsule PO 12/15/23 11:34 100 mg ONCE ONE Administration Lidocaine HCl 5 ml 12/15/23 10:20 12/15/23 10:36 Lidocaine Hcl 1 % Mpf 5 Ml Vial INFILTRATI 12/15/23 10:21 5 ml ONCE ONE Administration Lidocaine HCl 5 ml 12/15/23 10:21 12/15/23 10:37 Lidocaine Hcl 1 % Mpf 5 Ml Vial INFILTRATI 12/15/23 10:22 5 ml ONCE ONE Administration Lorazepam 1 mg 12/15/23 10:20 12/15/23 10:36 Lorazepam 1 Mg Tablet PO 12/15/23 10:21 1 mg ONCE ONE Administration Medical Decision Making Medical Decision Making MDM Narrative: 48 year old female with pmhx significant for asthma and T2DM presents to the ED today for evaluation of abscess to right thigh x6 days. Patient is slightly hypertensive, vitals otherwise wnl. She is nontoxic appearing and in NAD. On exam, 5cm x3cm abscess noted to right medial thigh with central fluctuance/pointing and surrounding induration/ erythema. warm, ttp. no streaking. abd soft, ND/NT, no rebound or guarding. Differential diagnosis includes cellulitis, abscess. Unlikely gangrene, insect bite, tick bourne illness. Plan for basic labs, pain control, I&D, re-evaluation. Differential Diagnosis Differential Diagnoses: The differential diagnosis associated with the presentation includes as above. Admission/Observation Consideration of admission/observation: Escalation of care including admission/observation considered admission considered on presentation Lab Data MDM Lab Attestation statement: I reviewed the patient's lab results. as above. 12/15/23 10:29 12/15/23 10:29 Labs: Lab Results 12/15/23 Range/Units 10:29 WBC 13.9 H (4.8-10.8) X10*3/uL RBC 4.79 (4.20-5.50) X10*6/uL Hgb 14.8 (12.0-16.0) g/dl Hct 42.0 (37.0-47.0) % MCV 87.7 (80.0-98.0) fL MCH 30.9 (27.0-33.0) pg MCHC 35.2 H (31.0-35.0) g/dl RDW 12.1 (11.0-16.0) % Plt Count 304 (160-400) X10*3/uL MPV 9.2 L (9.4-12.3) fL Immature Gran % (Auto) 0.4 (0.0-0.4) % Neut % (Auto) 40.6 L (45-73) % Lymph % (Auto) 49.7 H (20-40) % [place] % (Auto) 5.2 (2-11) % Eos % (Auto) 3.6 (0-4) % Baso % (Auto) 0.5 (0-2) % Lymph # (Auto) 6.9 H (1.2-4.9) X10*3/uL [place] # (Auto) 0.7 (0.1-1.2) X10*3/uL Eos # (Auto) 0.5 H (0.0-0.4) X10*3/uL Baso # (Auto) 0.1 (0.0-0.2) X10*3/uL Abs Immat Gran (auto) 0.05 H (0.00-0.03) X10*3/uL Absolute Neuts (auto) 5.7 (2.0-8.3) x10*3/uL Absolute Nucleated RBC 0.000 (0.0-0.012) X10*3/uL Nucleated RBC % (auto) 0.0 (0.0-0.2) /100WBC Smear Tech's Comments VERIFIED Sodium 137 (135-145) mmol/L Potassium 3.7 (3.3-5.1) mmol/L Chloride 99 (96-108) mmol/L Carbon Dioxide 27 (22-29) mmol/L Anion Gap 15 (12-20) BUN 15 (9-16) mg/dL Creatinine 0.77 (0.5-1.4) mg/dL Estim Creat Clear Calc 101.1 Estimated GFR > 60 Random Glucose 244 H (60-115) mg/dL Calcium 10.4 H (8.4-10.2) mg/dL Total Bilirubin 0.4 (0.0-1.0) mg/dL AST 10 (5-31) U/L ALT 13 (0-31) U/L Alkaline Phosphatase 74 (39-117) U/L Total Protein 7.0 (6.5-8.0) g/dL Albumin 3.9 (3.5-5.0) g/dL Influenza Type A (PCR) NEGATIVE (Negative) Influenza Type B (PCR) NEGATIVE (Negative) RSV RNA Qual (PCR) NEGATIVE (Negative) SARS-CoV-2 RNA (RT-PCR) NEGATIVE (Negative) Independent Historian Clinical information obtained from an independent historian. History obtained from or confirmed by: Spouse () External Record Review External record reviewed: Inpatient record Prescription Management I considered prescription management with: Pain Medication and Antibiotic (keflex, doxycycline) Chronic Conditions Patient?s care impacted by: Diabetes Social Determinants Patient?s care significantly limited by Social Determinants of Health including: Other Social Determinant of Health Procedures Abscess I/D Site: lower extremity (inner thigh) Side (if applicable): right Sedation/analgesia: other (ativan 1mg PO) Local Anesthetic: lidocaine 1% Amount of anesthesia used (mL): 10 Technique: incised with blade Amount of fluid expressed (mL): 10 Sent for culture/gram staining?: Yes Irrigation: Yes Packing used?: iodoform Critical Care Time Critical Care Time Critical Care Time: No Discharge Plan Discharge Clinical Impression: Abscess of right thigh Patient Disposition: Home, Self-Care Instructions: Abscess (ED), Abscess Incision and Drainage (DC) Additional Instructions: You were evaluated in the ED today for an abscess to your right thigh. Please keep the area surrounding the abscess clean and dry. You will be given a prescription for antibiotics (Keflex and Doxycycline). Please take the antibiotics as directed for the full course of the medication. If the abscess progresses you may have to have the abscess incised and drained. The abscess was packed. Please leave the packing in until it falls out (approx 5 days). I recommend you take 600mg ibuprofen every 6 hours or Tylenol 650mg every 6 hours as needed for pain. If needed, you can alternate these medications so that you take one medication every 3 hours. For example, at noon take ibuprofen, then at 3pm take Tylenol, then at 6pm take ibuprofen. Please schedule an appointment with your primary care provider as soon as possible for follow up. You have also been provided with a referral to a general surgeon. You may call them to establish care. They will not call you. Return to the Emergency Department if you experience fevers greater than 100.4F, increase in area of redness or swelling, increasing amount of discharge from the area, increased tenderness around the area, or any other concerning symptoms. Prescriptions: New doxycycline hyclate 100 mg tablet 100 mg PO BID 7 Days Qty: 14 0RF cephalexin 500 mg capsule 500 mg PO QID 7 Days Qty: 28 0RF [place] [facility] [place] [facility] [place] Group] Laila Mosley CNP [Primary Care Provider] - Stand Alone Forms: Work/School Release Interventions: ED Discharge Assessment Last Done: 12/15/23 12:20 Discharge Date/Time: 12/15/23 12:20 Print Language: Czech
[2023-12-15] MEDS: Lidocaine HCl 1 % MPF 5 ML VIAL INFILTRATI ×2 (10:36→10:37)
[2023-12-15] MEDS: LORazepam 1 MG TABLET PO (10:36)
[2023-12-15 10:37] LABS: Basophils Absolute Auto 0.1 X10*3/uL (0.0-0.2); Basophils Percent Auto 0.5 % (0-2); Eosinophils Absolute Auto 0.5 X10*3/uL (0.0-0.4); Eosinophils Percent Auto 3.6 % (0-4); Hemoglobin 14.8 g/dl (12.0-16.0); Imm Gran Abs Auto 0.05 X10*3/uL (0.00-0.03); Imm Gran Pct Auto 0.4 % (0.0-0.4); Lymphocytes Percent Auto 49.7 % (20-40); MANUAL DIFF FLAG SCAN; Mean Corpuscular HGB Conc 35.2 g/dl (31.0-35.0); Mean Corpuscular Hemoglobin 30.9 pg (27.0-33.0); Mean Corpuscular Volume 87.7 fL (80.0-98.0); Mean Platelet Volume 9.2 fL (9.4-12.3); Monocytes Absolute Auto 0.7 X10*3/uL (0.1-1.2); Monocytes Percent Auto 5.2 % (2-11); Neutrophils Absolute Auto 5.7 x10*3/uL (2.0-8.3); Neutrophils Percent Auto 40.6 % (45-73); Platelet Count 304 X10*3/uL (160-400); Red Blood Count 4.79 X10*6/uL (4.20-5.50); Red Cell Distribution Width 12.1 % (11.0-16.0); SCAN SMEAR FLAG 1; White Blood Count 13.9 X10*3/uL (4.8-10.8)
[2023-12-15 10:40] LABS: Lymphocytes Absolute Auto 6.9 X10*3/uL (1.2-4.9)
[2023-12-15 10:57] LABS: SLIDE REVIEW VERIFIED
[2023-12-15 11:00] LABS: Alanine Aminotransferase 13 U/L (0-31); Albumin Level 3.9 g/dL (3.5-5.0); Alkaline Phosphatase 74 U/L (39-117); Anion Gap 15 (12-20); Aspartate Amino Transferase 10 U/L (5-31); Bilirubin Total 0.4 mg/dL (0.0-1.0); Blood Urea Nitrogen 15 mg/dL (9-16); Calcium 10.4 mg/dL (8.4-10.2); Carbon Dioxide 27 mmol/L (22-29); Chloride 99 mmol/L (96-108); Creatinine Clr Calc Pharmacy 101.1; Estimated Glomerular Filt Rate > 60; Glucose Random 244 mg/dL (60-115); Potassium 3.7 mmol/L (3.3-5.1); Sodium 137 mmol/L (135-145)
[2023-12-15 11:17] LABS: Influenza A PCR NEGATIVE (Negative); Influenza B PCR NEGATIVE (Negative); Resp Syncy Virus RNA Qual PCR NEGATIVE (Negative); SARS COV2 PCR INHOUSE NEGATIVE (Negative)
[2023-12-15] MEDS: Doxycycline Monohydrate 100 MG CAPSULE PO (11:52)
[2023-12-15] MEDS: cephALEXin 500 MG CAPSULE PO (11:52)
[2023-12-15 12:20] VITALS: BP 141/91; PULSE 70; RESP 16; TEMP 36.2; O2SAT 97
== END 2023-12-15 12:20 | disposition home or self-care (01) ==
PROVIDERS: Physician Assistant Medical; Emergency Provider Emergency Medicine; PCP Nurse Practitioner Family
DX: L02.415 Cutaneous abscess of right lower limb (principal); Z03.818 Encounter for observation for suspected exposure to other biological agents ruled out; Z79.899 Other long term (current) drug therapy
CPT/HCPCS: 0241U; 10060; 80053; 85025; 87070; 87205; 99284

== ENCOUNTER 2023-12-24 11:22 | Outpatient (AMB) | payer OTHER, SELFPAY ==
--- NOTE | 2023-12-24 11:24 | MHC.OFFVIS ---
Vital Signs 12/24/23 11:29 Height 51 ft Weight 242 lb BMI 0.5 BP 136/84 Blood Pressure Location Rt brachial Position Sitting Pulse 74 Intake Visit Reasons: Abscess of thight I & D Intake Note: Patient referred after ER visit on 12-15-23 for abscess on Rt thigh. Rx Doxycycline, Cephalexin course will be completed today. Patient c/o: slightly oozing, painful, [employer] Required: No Accompanied by: Self / Same As Patient Allergies Penicillins [PENICILLINS] Allergy (Unknown, Verified 12/24/23 11:31) HIVES bupropion [From Wellbutrin] Allergy (Verified 12/24/23 11:31) Hives metformin Allergy (Verified 12/24/23 11:31) Gastrointestinal Upset HPI Comments Details: Patient presents here with her mother. Patient had I&D of the right upper inner thigh infected sebaceous cyst/abscess several days ago. She presents here for follow-up. She is completing her antibiotic course and local wound care which had packing. She has had marked improvement in her symptoms. Chart was reviewed and patient evaluate [facility] Medical History Diabetic acidosis Asthma Social History Alcohol intake: current Substance Use Type: Marijuana Physical Exam Vital Signs: Last Vital Signs Pulse 74 12/24/23 11:29 BP 136/84 12/24/23 11:29 BMI result Body Mass Index 0.5 Extrem Other: Mid right medial thigh demonstrates resolving infected carbuncle/cyst. No evidence of recurrent abscess. Mildly tender to palpation but patient states much better since original presentation and I&D. Assessment & Plan Assessment & Plan (1) Status post incision and drainage: Code(s): Z98.890 - Other specified postprocedural states Category: Medical Plan At present, no acute surgical issues. Should this recur, patient has been instructed to contact the office. In the meantime she has been given local instructions and otherwise follow-up p.r.n.. All questions answered. Coding Level of Care Code New Pt Level 3 (50536) Diagnoses Status post incision and drainage Z98.890
[2023-12-24 11:29] VITALS: BP 136/84; PULSE 74
== END 2023-12-24 12:02 | disposition home or self-care (01) ==
PROVIDERS: PCP Nurse Practitioner Family; Visit Provider Surgery
DX: Z98.890 Other specified postprocedural states (principal)
CPT/HCPCS: 99203

== ENCOUNTER → 2023-12-24 11:22 | Outpatient (BNVA) | payer OTHER, SELFPAY | PROVIDERS: PCP Nurse Practitioner Family; Visit Provider Surgery ==